=== PATIENT | female | born 1930 | race Caucasian/White ===

== ENCOUNTER 2016-10-21 09:08 | Outpatient (CLI) | payer MEDICARE ==
[~2016-10-21] VITALS: Ht 157.5 cm; Wt 60.8 kg
[~2016-10-21 09:08] MED LIST: ACET325T49 PO; ACHD5005 PO; ALEN70TA47 PO; AMLO10TA82 PO; AMLO5TAB2 PO; ASP81CT PO; ASP81TEC PO; ASPI325T32 PO; ATRV10T PO; CAPT50TA3 PO; CAPTOPRIL 12.5 MG PO; CEPH-38 PO; DCS100C PO; DONE10TA5 PO; DOXY100C2 PO; DULO30CA PO; FAMO20TA13 PO; GBPN300C PO; GUAI100S PO; HCT25T PO; HYDR-1231 PO; HYDR12.56 PO; LOPE2CAP PO; LOSA100T7 PO; LVT.025T PO; MAGN-77 PO; MELO-198 PO; MEMA5TAB2 PO; METO50TA7 PO; MUPI22OI TP; OLME40TA14 PO; PNT40TEC PO; TELM40TA PO; TR1C15 TOP; TRAM-21 PO; TRAM50TA2 PO; WRF5T PO
[2016-10-21] MEDS ORDERED: LOSA50TA36 PO (10:17)
[2016-10-21] MEDS ORDERED: TRAM50TA2 PO (10:17)
== END 2016-10-21 10:19 ==
LOC: PREOP 09:08
PROVIDERS: ATTEND Surgery
DX: Z01.818 Encounter for other preprocedural examination (principal); L98.9 Disorder of the skin and subcutaneous tissue, unspecified

== ENCOUNTER 2016-10-25 06:19 | Day surgery (SDC) | payer MEDICARE ==
[~2016-10-25] VITALS: Ht 157.5 cm; Wt 60.8 kg
[~2016-10-25 06:19] MED LIST changes: +LOSA50TA36 PO
[2016-10-25 07:25] VITALS: BP 146/89
[2016-10-25] MEDS ORDERED: LACTATED RINGERS 1,000 ML IV PRN (07:25)
[2016-10-25] MEDS ORDERED: ceFAZolin 1 GM/NS 50 ML IVPB IV ONE ×2 (07:30)
[2016-10-25] MEDS ORDERED: proPOfol 200 MG/20 ML (DIPRIVAN) VIAL IV ONE (07:33)
[2016-10-25] MEDS ORDERED: fentaNYL INJECTION 100 MCG/2 ML AMP ONE (07:33)
--- NOTE | 2016-10-25 07:46 | Progress Note-Pre Operative ---
Pre-Operative Progress Note H&P Reviewed The H&P was reviewed, patient examined and no changes noted. Date H&P Reviewed: Oct 25, 2016 Time H&P Reviewed: 07:46 Pre-Operative Diagnosis: Skin lesions right cheek and R side of neck ZAHIRA TANNER MD Oct 25, 2016 7:46 am
--- NOTE | 2016-10-25 08:22 | Progress Note-Post Operative ---
Post-Operative Progess Note Pre-Operative Diagnosis Skin lesions right cheek and R side of neck Post-Operative Diagnosis Same Post-Op Procedure Note Date of Procedure: Oct 25, 2016 Name of Procedure: Excision Times 2 Anesthesia Type Gen. Estimated blood loss (mL): Minimal Specimen(s) collected skin lesions ZAHIRA TANNER MD Oct 25, 2016 8:22 am
--- NOTE | 2016-10-25 08:24 | Discharge Inst-Simple/Standard ---
Discharge Inst-Standard Discharge Medications New, Converted or Re-Newed RX: Other Patient Instructions/Follow Up Plan of Care/Instructions/FU: May use tramadol for pain.Follow-up with my nurse in 2 weeks Activity as Tolerated: Yes Discharge Diet: No Restrictions ZAHIRA TANNER MD Oct 25, 2016 8:24 am
[2016-10-25] MEDS ORDERED: DESFLURANE (SUPRANE) 15 ML INHAL SOLN ONE (09:03)
[2016-10-25] MEDS ORDERED: LACTATED RINGERS 1,000 ML IV ONE (09:04)
[2016-10-25] MEDS ORDERED: BUP/EPI 0.25% 1:200,000 (MARCAINE) 30 ML VIAL INJ ONE (09:30)
[2016-10-25 09:55] VITALS: BP 161/82
[2016-10-25 10:25] VITALS: BP 144/78
[2016-10-25 10:55] VITALS: BP 149/85
--- NOTE | 2016-10-25 11:11 | OPERATIVE REPORT ---
PROCEDURE PHYSICIAN: ZAHIRA TANNER DATE OF PROCEDURE: 10/25/2016 PREOPERATIVE DIAGNOSIS: 1. 4 cm skin lesion right cheek. 2. 3 cm skin lesion right side of neck. POSTOPERATIVE DIAGNOSIS: 1. 4 cm skin lesion right cheek. 2. 3 cm skin lesion right side of neck. OPERATION: Excision. SURGEON: Anam ANESTHESIA: General anesthesia. BLOOD LOSS: Minimal. FLUIDS: 500 mL crystalloids. TYPE OF WOUND: Type I (clean wound). INDICATION FOR THE PROCEDURE: This lady presented with the lesions mentioned above, involving the right cheek the right side of the neck concerning for skin cancers. She was offered excision to establish a definitive diagnosis. Informed consent was obtained after reviewing the procedure with her power of trade mark attorney. DESCRIPTION OF PROCEDURE: She was placed supine on the operative table and general anesthesia induced using a laryngeal mask airway. A gram of Ancef was administered intravenously as prophylaxis against wound infection. Sequential compression devices were placed around her legs, to minimize the risk of venous thrombosis. Her neck and face were prepared and draped in the usual sterile manner. 1. EXCISION OF LESION RIGHT SIDE OF NECK: Preemptive analgesia was established using 0.25% Marcaine with epinephrine. An elliptical incision 5 cm long x 4 cm wide was made and the lesion excised down to the subcutaneous tissue. It was oriented with silk sutures and sent for permanent histologic examination. The skin edges were then undermined and approximated with interrupted 6-0 nylon sutures. A nonadherent dressing was then applied. 2. EXCISION OF LESION RIGHT CHEEK. Preemptive analgesia was established using the same material. An elliptical incision about 6 cm long x 5 cm wide was made and the lesion excised. It was also oriented with silk sutures and sent for histologic examination. Skin edges were undermined and approximated with interrupted 6-0 nylon sutures. She tolerated the procedures well, was extubated in the operating room and taken to the recovery room in a stable condition. The [place], sponges, and instruments were correct at the end of the operation. Job ID: [id number] Dictated Date: 10/25/2016 08:21:16 Forest Fire Management Officer Date: 10/25/2016 11:03:56 / shara
[2016-10-25 11:30] VITALS: BP 149/85
[2016-10-25] MEDS ORDERED: NEO/POLY/BAC (NEOSPORIN) OINT 15 GM TUBE TOP SCH (21:00)
== END 2016-10-25 11:30 | disposition home or self-care (01) ==
LOC: SDC 06:19
PROVIDERS: ATTEND Surgery
DX: C44.41 Basal cell carcinoma of skin of scalp and neck (principal); L57.0 Actinic keratosis
CPT/HCPCS: 87081; 88305; 88342

== ENCOUNTER → 2017-08-28 | Outpatient (CLI) | payer MEDICARE ==
[2017-08-28 15:55] LABS: BASOPHILS % (AUTO) 1 % (0-10); EOSINOPHILS % (AUTO) 1 % (0-10); HEMATOCRIT 34 % (35-52); HEMOGLOBIN 11.6 G/DL (11.5-16.0); LYMPHOCYTES # (AUTO) 0.6 X 10^3 (1.0-4.0); LYMPHOCYTES % (AUTO) 9 % (12-44); MEAN CORPUSCULAR HEMOGLOBIN 38 PG (25-34); MEAN CORPUSCULAR HGB CONC 34 G/DL (32-36); MEAN CORPUSCULAR VOLUME 112 FL (80-99); MEAN PLATELET VOLUME 10.2 FL (7.4-10.4); MONOCYTES # (AUTO) 0.7 X 10^3 (0.0-1.0); MONOCYTES % (AUTO) 10 % (0-12); NEUTROPHILS # (AUTO) 5.6 X 10^3 (1.8-7.8); NEUTROPHILS % (AUTO) 80 % (42-75); PLATELET COUNT 246 10^3/uL (130-400); RED BLOOD COUNT 3.04 10^6/uL (4.35-5.85); RED CELL DISTRIBUTION WIDTH 14.2 % (10.0-14.5)
--- NOTE | 2017-08-28 15:56 | Diagnostic Imaging Report ---
INDICATION: Fever and weakness. TIME OF EXAM: 03:16 p.m. Correlation is made with prior study from 09/03/2013. FINDINGS: The heart size is stable. There is a vague density noted in the right base. Otherwise, the lungs are clear. No effusion is seen. There is no pneumothorax. IMPRESSION: Vague slightly nodular parenchymal density in the right lower lobe, perhaps an infiltrate. Underlying nodule cannot be excluded. Follow-up after course of therapy is recommended to confirm clearing. Dictated by: Dictated on workstation # [id number]
== END ==
LOC: LAB 14:59
PROVIDERS: ATTEND Family Medicine
DX: R50.9 Fever, unspecified (principal); R53.83 Other fatigue; J06.9 Acute upper respiratory infection, unspecified
CPT/HCPCS: 36415; 71045; 85025; 87804

== ENCOUNTER → 2017-10-11 | Outpatient (CLI) | payer MEDICARE ==
[~2017-10-11] MED LIST changes: +AMLO10TA2 PO; +ASPI-983 PO; +DOCU100C37 PO; +DONE10TA41 PO; +GABA-488 PO; +GUAI100L13 PO; +LEVO25TA5 PO; +LOPE-134 PO; +MEMA10TA22 PO; +METO-370 PO
== END ==
LOC: CVS 07:15
PROVIDERS: ATTEND Family Medicine
DX: A04.72 Enterocolitis due to Clostridium difficile, not specified as recurrent (principal)
CPT/HCPCS: 87324; 87449

== ENCOUNTER 2017-10-13 11:00 | Inpatient (IN) | payer MEDICARE ==
[~2017-10-13] VITALS: Ht 157.5 cm; Wt 69.9 kg
[~2017-10-13 11:00] MED LIST changes: -AMLO10TA2 PO; -ASPI-983 PO; -DOCU100C37 PO; -DONE10TA41 PO; -GABA-488 PO; -GUAI100L13 PO; -LEVO25TA5 PO; -LOPE-134 PO; -MEMA10TA22 PO; -METO-370 PO
--- OUTSIDE RECORDS SUMMARY | 2017-10-13 11:06 | XMS REPORT | Continuity of Care Document ---
Author Author [facility] Organization [facility] Address Unknown Phone Unavailable Allergies Active Description Code Type Severity Reaction Onset Reported/Identified Relationship to Patient Clinical Status Yes No Known Drug Allergies [id number] Drug Allergy Unknown N/A 01/12/2013 Medications There is no data. Problems Date Dx Coded Attending Type Code Diagnosis Diagnosed By 01/15/2013 DAHLIA ROJAS DO Ot 244.9 01/15/2013 DAHLIA ROJAS DO Ot 276.51 01/15/2013 DAHLIA ROJAS DO Ot 401.9 01/15/2013 DAHLIA ROJAS DO Ot 715.90 01/15/2013 DAHLIA ROJAS DO Ot 783.0 01/27/2013 VIRGINIA KELLY, BG E Ot 244.9 01/27/2013 VIRGINIA KELLY, BG E Ot 272.0 01/27/2013 VIRGINIA KELLY, BG E Ot 275.41 01/27/2013 VIRGINIA KELLY, BG E Ot 276.1 01/27/2013 VIRGINIA KELLY, BG E Ot 300.00 01/27/2013 VIRGINIA KELLY, BG E Ot 311 01/27/2013 VIRGINIA KELLY, BG E Ot 401.9 01/27/2013 VIRGINIA KELLY, BG E Ot 530.5 01/27/2013 VIRGINIA KELLY, BG E Ot 715.90 01/27/2013 VIRGINIA KELLY, BG E Ot 724.2 01/27/2013 VIRGINIA KELLY, BG E Ot 780.52 01/27/2013 VIRGINIA KELLY, BG E Ot 781.2 01/27/2013 VIRGINIA KELLY, BG E Ot 783.21 01/27/2013 VIRGINIA KELLY, BG E Ot 799.3 01/27/2013 VIRGINIA KELLY, BG E Ot V15.88 01/27/2013 VIRGINIA KELLY, BG E Ot V57.89 04/22/2013 DHALIA ROJAS DO Ot 244.9 04/22/2013 DAHLIA ROJAS DO Ot 272.4 04/22/2013 GELLENDER DO, DAHLIA A Ot 276.1 04/22/2013 GELLENDER DO, DAHLIA A Ot 276.8 04/22/2013 GELLENDER DO, DAHLIA A Ot 344.40 04/22/2013 GELLENDER DO, DAHLIA A Ot 401.9 04/22/2013 GELLENDER DO, DAHLIA A Ot 434.91 04/22/2013 GELLENDER DO, DAHLIA A Ot 715.90 04/22/2013 GELLENDER DO, DAHLIA A Ot 784.59 04/22/2013 GELLENDER DO, DAHLIA A Ot V15.82 04/22/2013 GELLENDER DO, DAHLIA Stinson Ot V15.88 05/13/2013 VIRGINIA KELLY, BG E Ot 244.9 05/13/2013 VIRGINIA KELLY, BG E Ot 342.02 05/13/2013 VIRGINIA KELLY, BG E Ot 401.9 05/13/2013 VIRGINIA KELLY, BG E Ot 429.89 05/13/2013 VIRGINIA KELLY, BG E Ot 438.20 05/13/2013 VIRGINIA KELLY, BG E Ot 715.90 05/13/2013 VIRGINIA KELLY, BG E Ot 782.7 05/13/2013 VIRGINIA KELLY, BG E Ot E934.2 05/13/2013 VIRGINIA KELLY, BG E Ot V57.89 06/12/2013 ANGUS MANCUSO FUEL CELL BATTERY TECHNICIAN Ot 842.00 06/12/2013 ANGUS MANCUSO FUEL CELL BATTERY TECHNICIAN Ot 959.2 06/12/2013 ANGUS MANCUSO FUEL CELL BATTERY TECHNICIAN Ot E000.8 06/12/2013 ANGUS MANCUSO FUEL CELL BATTERY TECHNICIAN Ot E849.6 06/12/2013 ANGUS MANCUSO FUEL CELL BATTERY TECHNICIAN Ot E918 07/29/2013 SHAWNA KELLY, ANIYAH T Ot 599.0 07/29/2013 SHAWNA KELLY, ANIYAH T Ot 808.8 07/29/2013 SHAWNA KELLY, ANIYAH T Ot 959.01 07/29/2013 SHAWNA KELLY, ANIYAH T Ot 959.6 07/29/2013 SHAWNA KELLY, ANIYAH T Ot E000.8 07/29/2013 SHAWNA KELLY, ANIYAH T Ot E849.7 07/29/2013 SHAWNA KELLY, ANIYAH Aris Ot E885.9 07/29/2013 SHAWNA KELLY, ANIYAH Aris Ot V58.61 09/03/2013 GELLENDER DO, DAHLIA Stinson Ot 244.9 09/03/2013 GELLENDER DO, DAHLIA Stinson Ot 272.4 09/03/2013 GELLENDER DO, DAHLIA Stinson Ot 276.8 09/03/2013 GELLENDER DO, DAHLIA Stinson Ot 401.9 09/03/2013 GELLENDER DO, DAHLIA Stinson Ot 438.89 09/03/2013 GELLENDER DO, DAHLIA Stinson Ot 486 09/03/2013 GELLENDER DO, DAHLIA Stinson Ot 535.60 09/03/2013 GELLENDER DO, DAHLIA Stinson Ot 553.3 09/03/2013 GELLENDER DO, DAHLIA Stinson Ot 562.10 09/03/2013 GELLENDER DO, DAHLIA Stinson Ot 578.9 09/03/2013 GELLENDER DO, DAHLIA Stinson Ot 728.87 09/03/2013 GELLENDER DO, DAHLIA Stinson Ot 780.97 09/03/2013 GELLENDER DO, DAHLIA Stinson Ot 790.92 09/03/2013 GELLENDER DO, DAHLIA Stinson Ot V58.61 07/05/2014 Ot V76.12 07/05/2014 Ot V76.12 07/05/2014 Ot 733.00 07/05/2014 Ot V76.12 07/05/2014 Ot 733.00 07/05/2014 Ot V76.12 07/05/2014 GELLENDER DO, DAHLIA Stinson Ot 593.9 07/05/2014 GELLENDER DO, DAHLIA Stinson Ot 733.90 07/05/2014 GELLENDER DO, DAHLIA Stinson Ot 783.1 07/05/2014 GELLENDER DO, DAHLIA Stinson Ot 783.21 07/05/2014 GELLENDER DO, DAHLIA Stinson Ot 719.47 07/05/2014 GELLENDER DO, DAHLIA Stinson Ot 729.5 07/05/2014 TYREL KELLY, SHYAM Bradley Ot 272.4 07/05/2014 TYREL KELLY, SHYAM Bradley Ot 401.9 07/05/2014 TYREL KELLY, SHYAM Bradley Ot 433.10 07/05/2014 TYREL KELLY, SHYAM Bradley Ot V12.54 07/05/2014 GELLENDER DO, DAHLIA Stinson Ot 599.0 07/05/2014 Ot V76.12 07/05/2014 Ot V76.12 07/05/2014 Ot 733.00 07/05/2014 Ot V76.12 07/05/2014 Ot 733.00 07/05/2014 Ot V76.12 07/05/2014 GELLENDER DODAHLIA Ot 593.9 07/05/2014 GELLENDER DODAHLIA Ot 733.90 07/05/2014 GELLENDER DODAHLIA Ot 783.1 07/05/2014 GELLENDER DODAHLIA Ot 783.21 07/05/2014 GELLENDER DODAHLIA Ot 719.47 07/05/2014 GELLENDER DODAHLIA Ot 729.5 07/05/2014 TYREL KELLY, SHYAM Bradley Ot 272.4 07/05/2014 TYREL KELLY, SHYAM Bradley Ot 401.9 07/05/2014 SHYAM SARAH MD Ot 433.10 07/05/2014 SHYAM SARAH MD Ot V12.54 07/05/2014 GELLENDER DODAHLIA Ot 599.0 12/02/2014 Ot V76.12 12/02/2014 Ot 733.00 12/02/2014 Ot V76.12 12/02/2014 Ot 733.00 12/02/2014 Ot V76.12 12/02/2014 GELLENDER DODAHLIA Ot 593.9 12/02/2014 GELLENDER DODAHLIA Ot 733.90 12/02/2014 GELLENDER DODAHLIA Ot 783.1 12/02/2014 GELLENDER DODAHLIA Ot 783.21 12/02/2014 GELLENDER DODAHLIA Ot 719.47 12/02/2014 GELLENDER DODAHLIA Ot 729.5 12/02/2014 TYREL KELLY, SHYAM Bradley Ot 272.4 12/02/2014 SHYAM SARAH MD Ot 401.9 12/02/2014 SHYAM SARAH MD Ot 433.10 12/02/2014 SHYAM SARAH MD Ot V12.54 12/02/2014 GELLENDER DODAHLIA Ot 599.0 12/08/2014 Ot V76.12 12/08/2014 Ot 733.00 12/08/2014 Ot V76.12 12/08/2014 Ot 733.00 12/08/2014 Ot V76.12 12/08/2014 GELLENDER DO, DAHLIA A Ot 593.9 12/08/2014 GELLENDER DO, DAHLIA Stinson Ot 733.90 12/08/2014 GELLENDER DO, DAHLIA Stinson Ot 783.1 12/08/2014 GELLENDER DO, DAHLIA Stinson Ot 783.21 12/08/2014 GELLENDER DO, DAHLIA Stinson Ot 719.47 12/08/2014 GELLENDER DO, DAHLIA A Ot 729.5 12/08/2014 TYREL KELLY, SHYAM Bradley Ot 272.4 12/08/2014 TYREL KELLY, SHYAM Bradley Ot 401.9 12/08/2014 TYREL KELLY, SHYAM Bradley Ot 433.10 12/08/2014 SHYAM SARAH MD Ot V12.54 12/08/2014 GELLENDER DO, DAHLIA A Ot 599.0 12/08/2014 FLORES KELLY, ZAHIRA Bedolla Ot 173.31 12/08/2014 FLORES KELLY, ZAHIRA Bedolla Ot 709.9 12/12/2014 FLORES KELLY, ZAHIRA Bedolla Ot 709.9 12/12/2014 FLORES KELLY, ZAHIRA Bedolla Ot V72.81 12/12/2014 FLORES KELLY, ZAHIRA Bedolla Ot V74.8 12/12/2014 Ot V76.12 12/12/2014 Ot 733.00 12/12/2014 Ot V76.12 12/12/2014 Ot 733.00 12/12/2014 Ot V76.12 12/12/2014 GELLENDER DO, DAHLIA A Ot 593.9 12/12/2014 GELLENDER DO, DAHLIA A Ot 733.90 12/12/2014 GELLENDER DO, DAHLIA A Ot 783.1 12/12/2014 GELLENDER DO, DAHLIA A Ot 783.21 12/12/2014 GELLENDER DO, DAHLIA A Ot 719.47 12/12/2014 GELLENDER DO, DAHLIA A Ot 729.5 12/12/2014 TYREL KELLY, SHAYM Bradley Ot 272.4 12/12/2014 TYREL KELLY, SHYAM Bradley Ot 401.9 12/12/2014 SHYAM SARAH MD Ot 433.10 12/12/2014 TYREL KELLY, SHYAM Bradley Ot V12.54 12/12/2014 GELLENDER DO, DAHLIA A Ot 599.0 12/12/2014 FLORES KELLY, ZAHIRA M Ot 709.9 12/12/2014 FLORES KELLY, ZAHIRA M Ot V72.81 12/12/2014 FLORES KELLY, ZAHIRA M Ot V74.8 12/20/2014 Ot V76.12 12/20/2014 Ot 733.00 12/20/2014 Ot V76.12 12/20/2014 Ot 733.00 12/20/2014 Ot V76.12 12/20/2014 GELLENDER DO, DAHLIA A Ot 593.9 12/20/2014 GELLENDER DO, DAHLIA A Ot 733.90 12/20/2014 GELLENDER DO, DAHLIA A Ot 783.1 12/20/2014 GELLENDER DO, DAHLIA A Ot 783.21 12/20/2014 GELLENDER DO, DAHLIA A Ot 719.47 12/20/2014 GELLENDER DO, DAHLIA A Ot 729.5 12/20/2014 TYREL KELLY, SHYAM Bradley Ot 272.4 12/20/2014 TYREL KELLY, SHYAM Bradley Ot 401.9 12/20/2014 TYREL KELLY, SHYAM Bradley Ot 433.10 12/20/2014 TYREL KELLY, SHYAM Bradley Ot V12.54 12/20/2014 GELLENDER DO, DAHLIA A Ot 599.0 12/20/2014 FLORES KELLY, ZAHIRA Bedolla Ot 709.9 12/20/2014 FLORES KELLY, ZAHIRA M Ot V72.81 12/20/2014 FLORES KELLY, ZAHIRA Bedolla Ot V74.8 01/07/2015 FLORES KELLY, ZAHIRA Bedolla Ot 709.9 01/07/2015 FLORES KELLY, ZAHIRA M Ot V72.81 01/07/2015 FLORES KELLY, ZAHIRA M Ot V74.8 01/17/2015 FLORES KELLY, ZAHIRA Bedolla Ot 173.31 01/17/2015 FLORES KELLY, ZAHIRA M Ot V72.84 01/17/2015 FLORES KELLY, ZAHIRA M Ot 173.31 01/17/2015 FLORES KELLY, ZAHIRA Bedolla Ot V72.84 01/18/2015 FLORES KELLY, ZAHIRA Bedolla Ot 173.31 01/18/2015 FLORES KELLY, ZAHIRA M Ot V72.84 01/20/2015 FLORES KELLY, ZAHIRA M Ot 173.31 01/27/2015 FLORES KELLY, ZAHIRA M Ot 709.9 01/27/2015 FLORES KELLY, ZAHIRA M Ot V72.81 01/27/2015 FLORES KELLY, ZAHIRA M Ot V74.8 10/22/2016 FLORES KELLY, ZAHIRA M Ot L98.9 DISORDER OF THE SKIN AND SUBCUTANEOUS TI 10/22/2016 FLORES KELLY, ZAHIRA M Ot Z01.818 ENCOUNTER FOR OTHER PREPROCEDURAL EXAMIN 10/25/2016 FLORES KELLY, ZAHIRA M Ot 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 10/25/2016 FLORES KELLY, ZAHIRA M Ot L57.0 ACTINIC KERATOSIS 10/29/2016 FLORES KELLY, ZAHIRA M Ot 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 10/29/2016 FLORES KELLY, ZAHIRA M Ot L57.0 ACTINIC KERATOSIS 11/08/2016 FLORES KELLY, ZAHIRA M Ot 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 11/08/2016 FLORES KELLY, ZAHIRA M Ot L57.0 ACTINIC KERATOSIS 08/29/2017 GELLENDER DO, DAHLIA A Ot J06.9 ACUTE UPPER RESPIRATORY INFECTION, UNSPE 08/29/2017 GELLENDER DO, DAHLIA A Ot R50.9 FEVER, UNSPECIFIED 08/29/2017 GELLENDER DO, DAHLIA A Ot R53.83 OTHER FATIGUE 09/16/2017 GELLENDER DO, DAHLIA A Ot J06.9 ACUTE UPPER RESPIRATORY INFECTION, UNSPE 09/16/2017 GELLENDER DO, DAHLIA A Ot R50.9 FEVER, UNSPECIFIED 09/16/2017 GELLENDER DO, DAHLIA A Ot R53.83 OTHER FATIGUE 09/18/2017 GELLENDER DO, DAHLIA A Ot J06.9 ACUTE UPPER RESPIRATORY INFECTION, UNSPE 09/18/2017 GELLENDER DO, DAHLIA A Ot R50.9 FEVER, UNSPECIFIED 09/18/2017 GELLENDER DO, DAHLIA A Ot R53.83 OTHER FATIGUE Procedures There is no data. Results Test Result Range Methicillin resistant Staphylococcus aureus (MRSA) screening culture - 07:25 Methicillin resistant Staphylococcus aureus (MRSA) screening culture NEG [facility] Complete blood count (CBC) with automated white blood cell (WBC) differential - 08/28/17 15:48 Blood leukocytes automated count (number/volume) 7.0 10*3/uL 4.3-11.0 Blood erythrocytes automated count (number/volume) 3.04 10*6/uL 4.35-5.85 Venous blood hemoglobin measurement (mass/volume) 11.6 g/dL 11.5-16.0 Blood hematocrit (volume fraction) 34 % 35-52 Automated erythrocyte mean corpuscular volume 112 [foz_us] 80-99 Automated erythrocyte mean corpuscular hemoglobin (mass per erythrocyte) 38 pg 25-34 Automated erythrocyte mean corpuscular hemoglobin concentration measurement ( mass/volume) 34 g/dL 32-36 Automated erythrocyte distribution width ratio 14.2 % 10.0-14.5 Automated blood platelet count (count/volume) 246 10*3/uL 130-400 Automated blood platelet mean volume measurement 10.2 [foz_us] 7.4-10.4 Automated blood neutrophils/100 leukocytes 80 % 42-75 Automated blood lymphocytes/100 leukocytes 9 % 12-44 Blood monocytes/100 leukocytes 10 % 0-12 Automated blood eosinophils/100 leukocytes 1 % 0-10 Automated blood basophils/100 leukocytes 1 % 0-10 Blood neutrophils automated count (number/volume) 5.6 10*3 1.8-7.8 Blood lymphocytes automated count (number/volume) 0.6 10*3 1.0-4.0 Blood monocytes automated count (number/volume) 0.7 10*3 0.0-1.0 Automated eosinophil count 0.0 10*3/uL 0.0-0.3 Automated blood basophil count (count/volume) 0.0 10*3/uL 0.0-0.1 Influenza virus A and B antigen detection - 08/28/17 15:48 CALL POSITIVES (F1 HELP) CALLED TO DR. ROJAS'S OFFICE AT [address] [facility] FLU RESULT POSITIVE FOR INFLUENZA A ANTIGEN, NEG FOR B ANTIGEN, BY [facility] C DIFFICILE AG + TOXIN A/B. - 10/11/17 07:15 CALL POSITIVES (F1 HELP) FAXED TO [facility] [phone] 10/11/17 11:50 NR SPECIAL CONTACT SPECIAL CONTACT PRECAUTIONS NEEDED NRG RESULTS POSITIVE FOR ANTIGEN AND TOXIN A/B NRG Encounters ACCT No. Visit Date/Time Discharge Status Pt. Type Provider Facility Loc./Unit Complaint [id number] 08/28/2017 14:59:00 08/28/2017 23:59:59 CLS Outpatient DAHLIA ROJAS DO [facility] LAB ELEV TEMP,WEAKNESS, URI, [id number] 10/25/2016 06:19:00 10/25/2016 11:30:00 DIS Outpatient ZAHIRA TANNER MD [facility] SKIN LESIONS [id number] 10/21/2016 09:08:00 10/21/2016 10:19:00 [facility] [id number] 01/20/2015 08:03:00 01/20/2015 14:30:00 DIS Outpatient ZAHIRA TANNER MD [facility] [id number] 01/17/2015 10:30:00 01/17/2015 23:59:59 CLS Outpatient ZAHIRA TANNER MD [facility] PREOP [id number] 12/08/2014 11:15:00 12/08/2014 17:00:00 DIS Outpatient ZAHIRA TANNER MD [facility] [id number] 12/07/2014 14:06:00 12/07/2014 23:59:59 CLS Outpatient ZAHIRA TANNER MD [facility] PREOP [id number] 01/31/2014 19:16:00 01/31/2014 23:59:59 CLS Outpatient DAHLIA ROJAS DO [facility] CVS [id number] 08/26/2013 13:25:00 09/03/2013 15:50:00 DIS Inpatient DAHLIA ROJAS DO [facility] SURGICAL [id number] 07/28/2013 21:19:00 07/29/2013 00:10:00 DIS Emergency SHAWNA KELLY, ANIYAH Hurst [facility] ER [id number] 06/30/2013 08:18:00 06/30/2013 23:59:59 CLS Outpatient SHYAM SARAH MD [facility] RAD [id number] 06/12/2013 16:57:00 06/12/2013 18:28:00 DIS Emergency JAMEEANGUS APRN [facility] [id number] 05/31/2013 10:16:00 05/31/2013 23:59:59 CLS Outpatient DAHLIA ROJAS DO [facility] RAD [id number] 04/22/2013 10:16:00 05/13/2013 16:18:00 DIS Inpatient BG COLEMAN MD [facility] [id number] 04/18/2013 14:59:00 04/22/2013 10:15:00 DIS Inpatient DAHLIA ROJAS DO Via [address] [id number] 01/15/2013 12:15:00 01/27/2013 14:25:00 DIS Inpatient BG COLEMAN MD [facility] [id number] 01/12/2013 15:51:00 01/15/2013 12:15:00 DIS Inpatient DAHLIA ROJAS DO Via [address] [id number] 12/23/2012 09:31:00 12/23/2012 23:59:59 CLS Outpatient DAHLIA ROJAS DO [facility] [id number] 10/11/2017 07:15:00 ACT Outpatient DAHLIA ROJAS DO [facility] [id number] 06/24/2012 09:52:00 Document Registration [id number] 12/13/2011 10:52:00 Document Registration [id number] 06/06/2011 10:44:00 Document Registration [id number] 12/04/2010 12:54:00 Document Registration [id number] 06/01/2010 08:18:00 Document Registration [id number] 05/25/2009 10:55:00 Document Registration
--- NOTE | 2017-10-13 11:12 | ED General ---
General Stated Complaint: FEVER Source of Information: Patient Exam Limitations: No Limitations History of Present Illness Date Seen by Provider: Oct 13, 2017 Time Seen by Provider: 11:09 Initial Comments To ER per EMS from via [facility] with reports of fever and general weakness. She was recently tested for Clostridium difficile and tested positive. She also tested positive a few weeks prior and was treated.She is a DO NOT RESUSCITATE status. Nursing staff reported a fever up to 104.3 this morning, upon EMS arrival, 99.8 Timing/Duration: 1-2 Days Severity: Moderate Allergies and Home Medications Allergies Coded Allergies: No Known Drug Allergies (Verified , 01/12/13) Home Medications Acetaminophen 325 Mg Tablet, 650 MG PO Q4H PRN for pain or temperature, ( Reported) Amlodipine Besylate 10 Mg Tablet, 10 MG PO DAILY, (Reported) Aspirin 81 Mg Tabec, 81 MG PO DAILY, (Reported) Atorvastatin Calcium 10 Mg Tablet, 10 MG PO HS, (Reported) Docusate Sodium 100 Mg Cap, 100 MG PO BID, (Reported) Donepezil HCl 10 Mg Tablet, 10 MG PO DAILY, (Reported) Gabapentin 300 Mg Cap, 300 MG PO HS, (Reported) Guaifenesin 100 Mg/5 Ml Btl, 10 ML PO Q4H PRN for COUGH, (Reported) Levothyroxine Sodium 25 Mcg Tablet, 25 MCG PO DAILY, (Reported) Losartan Potassium 50 Mg Tablet, 50 MG PO DAILY, (Reported) Memantine Hcl 5 Mg Tablet, 1 EACH PO BID, (Reported) Metoprolol Succinate 50 Mg Tab.sr.24h, 50 MG PO DAILY, (Reported) Tramadol HCl 50 Mg Tablet, 50 MG PO BID PRN for PAIN, (Reported) Patient Home Medication List Home Medication List Reviewed: Yes Constitutional: see HPI EENTM: see HPI Respiratory: no symptoms reported Cardiovascular: no symptoms reported Genitourinary: no symptoms reported Musculoskeletal: no symptoms reported Skin: no symptoms reported Psychiatric/Neurological: No Symptoms Reported Hematologic/Lymphatic: No Symptoms Reported Immunological/Allergic: no symptoms reported Past Cfrebce-Stdzdb-Ajzipw Hx Patient Social History Type Used: Cigarettes Former Smoker, Quit: Oct 25, 1966 Recent Hopitalizations: No Immunizations Up To Date PED Vaccines UTD: No Date of Pneumonia Vaccine: May 11, 2012 Date of Influenza Vaccine: May 17, 2016 Seasonal Allergies Seasonal Allergies: No Surgeries Surgeries: Appendectomy Cardiovascular Cardiac Disorders: Hypertension Neurological Neurological Disorders: Dementia, Stroke Reproductive System Hx Reproductive Disorders: No Sexually Transmitted Disease: No HIV/AIDS: No Female Reproductive Disorders: Denies Gastrointestinal Gastrointestinal Disorders: Gastroesophageal Reflux, Chronic Constipation Musculoskeletal Musculoskeletal Disorders: Degenerate Disk Disease, Osteoporosis, Arthritis Endocrine Endocrine Disorders: Hypothyroidsim HEENT Loss of Vision: Denies Hearing Impairment: Denies Cancer Cancer: Skin Blood Transfusions Adverse Reaction to a Blood Tr: No Family Medical History Significant Family History: Heart Disease, Cancer Physical Exam Vital Signs Vital Signs - First Documented 10/13/17 11:29 Temp 98.4 Pulse 79 Resp 20 B/P (MAP) 117/76 (90) Pulse Ox 92 O2 Delivery Room Air Capillary Refill : General Appearance: No Apparent Distress, WD/WN, Other (elderly and frail) Eyes: Bilateral Eye Normal Inspection, Bilateral Eye PERRL, Bilateral Eye EOMI HEENT: PERRL/EOMI, TMs Normal Neck: Full Range of Motion, Normal Inspection Respiratory: Normal Breath Sounds, No Accessory Muscle Use, No Respiratory Distress Cardiovascular: Regular Rate, Rhythm, Normal Peripheral Pulses Gastrointestinal: Normal Bowel Sounds, Non Tender, Soft, Other (abdomen is entirely nontender to palpation) Extremity: Normal Capillary Refill, Normal Inspection Neurologic/Psychiatric: Alert, Oriented x3, No Motor/Sensory Deficits Skin: Normal Color, Warm/Dry Focused Exam Evaluation Lactate Level Laboratory Tests 10/13/17 11:16: Lactic Acid Level 1.95 Lactic Acid Level Laboratory Tests Test 10/13/17 11:16 Lactic Acid Level 1.95 MMOL/L (0.50-2.00) Progress/Results/Core Measures Suspected Sepsis SIRS Temperature: Pulse: Respiratory Rate: Laboratory Tests 10/13/17 11:24: White Blood Count 17.5H Blood Pressure / Mean: Laboratory Tests 10/13/17 11:16: Lactic Acid Level 1.95 Laboratory Tests 10/13/17 11:24: Creatinine 1.01, Platelet Count 220, Total Bilirubin 0.6 Results/Orders Lab Results Laboratory Tests Test 10/13/17 11:16 10/13/17 11:24 Range/Units Lactic Acid Level 1.95 0.50-2.00 MMOL/L White Blood Count 17.5 H 4.3-11.0 10^3/uL Red Blood Count 3.58 L 4.35-5.85 10^6/uL Hemoglobin 13.9 11.5-16.0 G/DL Hematocrit 38 35-52 % Mean Corpuscular Volume 107 H 80-99 FL Mean Corpuscular Hemoglobin 39 H 25-34 PG Mean Corpuscular Hemoglobin Concent 36 32-36 G/DL Red Cell Distribution Width 12.8 10.0-14.5 % Platelet Count 220 130-400 10^3/uL Mean Platelet Volume 10.9 H 7.4-10.4 FL Neutrophils (%) (Auto) 88 H 42-75 % Lymphocytes (%) (Auto) 5 L 12-44 % Monocytes (%) (Auto) 6 0-12 % Eosinophils (%) (Auto) 1 0-10 % Basophils (%) (Auto) 0 0-10 % Neutrophils # (Auto) 15.4 H 1.8-7.8 X 10^3 Lymphocytes # (Auto) 0.9 L 1.0-4.0 X 10^3 Monocytes # (Auto) 1.0 0.0-1.0 X 10^3 Eosinophils # (Auto) 0.1 0.0-0.3 10^3/uL Basophils # (Auto) 0.1 0.0-0.1 10^3/uL Neutrophils % (Manual) 89 % Lymphocytes % (Manual) 8 % Monocytes % (Manual) 2 % Eosinophils % (Manual) 0 % Basophils % (Manual) 0 % Band Neutrophils 1 % Macrocytosis SLIGHT Urine Color YELLOW Urine Clarity CLEAR Urine pH 6 5-9 Urine Specific [place] 1.020 1.016-1.022 Urine Protein 2+ H NEGATIVE Urine Glucose (UA) NEGATIVE NEGATIVE Urine Ketones NEGATIVE NEGATIVE Urine Nitrite NEGATIVE NEGATIVE Urine Bilirubin NEGATIVE NEGATIVE Urine Urobilinogen NORMAL NORMAL MG/DL Urine Leukocyte Esterase 3+ H NEGATIVE Urine RBC (Auto) 2+ H NEGATIVE Urine RBC RARE /HPF Urine WBC 50-100 H /HPF Urine Squamous Epithelial Cells 2-5 /HPF Urine Crystals NONE /LPF Urine Bacteria MODERATE H /HPF Urine Casts NONE /LPF Urine Mucus NEGATIVE /LPF Urine Culture Indicated YES Sodium Level 138 135-145 MMOL/L Potassium Level 3.9 3.6-5.0 MMOL/L Chloride Level 107 98-107 MMOL/L Carbon Dioxide Level 24 21-32 MMOL/L Anion Gap 7 5-14 MMOL/L Blood Urea Nitrogen 17 7-18 MG/DL Creatinine 1.01 0.60-1.30 MG/DL Estimat Glomerular Filtration Rate 52 BUN/Creatinine Ratio 17 Glucose Level 95 70-105 MG/DL Calcium Level 8.7 8.5-10.1 MG/DL Total Bilirubin 0.6 0.1-1.0 MG/DL Aspartate Amino Transf (AST/SGOT) 14 5-34 U/L Alanine Aminotransferase (ALT/SGPT) 7 0-55 U/L Alkaline Phosphatase 100 40-136 U/L Total Protein 5.6 L 6.4-8.2 GM/DL Albumin 3.3 3.2-4.5 GM/DL My Orders Orders - ANGUS MANCUSO APRN Cbc With Automated Diff (10/13/17 11:05) Comprehensive Metabolic Panel (10/13/17 11:05) Ua Culture If Indicated (10/13/17 11:05) Saline Lock/Iv-Start (10/13/17 11:05) Lactated Ringers (Lr 1000 Ml Iv Solution (10/13/17 11:15) Manual Differential (10/13/17 11:24) Chest 1 View, Ap/Pa Only (10/13/17 11:39) Blood Culture (10/13/17 11:39) Lactic Acid Analyzer (10/13/17 11:39) Urine Culture (10/13/17 11:24) Piperacillin Sodium/Tazobactam (Zosyn Vi (10/13/17 13:00) Vital Signs/I&O Vital Sign - Last 12Hours 10/13/17 10/13/17 11:29 12:47 Temp 98.4 98.0 Pulse 79 77 Resp 20 16 B/P (MAP) 117/76 (90) 126/79 Pulse Ox 92 93 O2 Delivery Room Air Room Air Capillary Refill : Diagnostic Imaging Diagonstic Imaging: Xray Plain Films/CT/US/NM/MRI: chest Comments NAME: MIRNAFrankyTAM REC#: [id number] PT STATUS: REG ER : 1930 PHYSICIAN: ANGUS MANCUSO APRN ADMIT DATE: 10/13/17/ER Draft Date of Exam:10/13/17 CHEST 1 VIEW, AP/PA ONLY INDICATION: Fever and weakness. TIME OF EXAMINATION: 12:16 p.m. COMPARISON: Correlation is made with prior study from 08/28/2017. FINDINGS: The heart size is stable. There is some density in the left base obscuring the left hemidiaphragm, suspicious for infiltrate. The right lung is clear. No effusion or pneumothorax is seen. IMPRESSION: Findings suggestive of developing left basilar pneumonia. Dictated on workstation # [id number] Dict: 10/13/17 1226 Trans: 10/13/17 1234 [facility] [id number] Interpreted by: ATIF DOVER MD Electronically signed by: Departure Communication (Admissions) Time/Spoke to Admitting Phy: 12:49 Communication I discussed the case with Dr. Dr. Rojas. We will use Zosyn to cover for the pneumonia and urinary tract infection unfortunately this will likely cause a recurrence of her C. difficile so we'll treat empirically with Flagyl 500 3 times a day orally and probiotics Impression Impression: Primary Impression: Urinary tract infectious disease Additional Impressions: Left lower lobe pneumonia recent C. difficile Disposition: ADMITTED INPATIENT Condition: Stable Admissions Decision to Admit Reason: Admit from ER (General) Decision to Admit/Date: Oct 13, 2017 Time/Decision to Admit Time: 12:50 Departure-Patient Inst. Referrals: DAHLIA ROJAS DO (PCP/Family) Primary Care Physician ANGUS MANCUSO APRN Oct 13, 2017 11:12
[2017-10-13] MEDS ORDERED: LACTATED RINGERS 1,000 ML IV SCH (11:15)
[2017-10-13 11:35] LABS: BASOPHILS # (AUTO) 0.1 10^3/uL (0.0-0.1); BASOPHILS % (AUTO) 0 % (0-10); EOSINOPHILS # (AUTO) 0.1 10^3/uL (0.0-0.3); EOSINOPHILS % (AUTO) 1 % (0-10); HEMATOCRIT 38 % (35-52); HEMOGLOBIN 13.9 G/DL (11.5-16.0); LYMPHOCYTES # (AUTO) 0.9 X 10^3 (1.0-4.0); LYMPHOCYTES % (AUTO) 5 % (12-44); MEAN CORPUSCULAR HEMOGLOBIN 39 PG (25-34); MEAN CORPUSCULAR HGB CONC 36 G/DL (32-36); MEAN CORPUSCULAR VOLUME 107 FL (80-99); MEAN PLATELET VOLUME 10.9 FL (7.4-10.4); MONOCYTES % (AUTO) 6 % (0-12); NEUTROPHILS # (AUTO) 15.4 X 10^3 (1.8-7.8); NEUTROPHILS % (AUTO) 88 % (42-75); PLATELET COUNT 220 10^3/uL (130-400); RED BLOOD COUNT 3.58 10^6/uL (4.35-5.85); RED CELL DISTRIBUTION WIDTH 12.8 % (10.0-14.5); WHITE BLOOD COUNT 17.5 10^3/uL (4.3-11.0)
[2017-10-13 11:47] LABS: BILIRUBIN,URINE NEGATIVE (NEGATIVE); CLARITY,URINE CLEAR; COLOR,URINE YELLOW; GLUCOSE, URINE (UA) NEGATIVE (NEGATIVE); KETONES,URINE NEGATIVE (NEGATIVE); LEUKOCYTE ESTERASE ,URINE 3+ (NEGATIVE); NITRITE,URINE NEGATIVE (NEGATIVE); PH,URINE 6 (5-9); PROTEIN,URINE 2+ (NEGATIVE); UROBILINOGEN,URINE NORMAL (NORMAL)
[2017-10-13 11:59] LABS: BAND NEUTROPHILS 1 %; BASOPHILS % (MANUAL) 0 %; EOSINOPHILS % (MANUAL) 0 %; LYMPHOCYTES % (MANUAL) 8 %; MONOCYTES % (MANUAL) 2 %; NEUTROPHILS % (MANUAL) 89 %
[2017-10-13 12:03] LABS: ALBUMIN 3.3 GM/DL (3.2-4.5); BILIRUBIN,TOTAL 0.6 MG/DL (0.1-1.0); CALCIUM 8.7 MG/DL (8.5-10.1); CREATININE SERUM 1.01 MG/DL (0.60-1.30); POTASSIUM 3.9 MMOL/L (3.6-5.0); TOTAL PROTEIN 5.6 GM/DL (6.4-8.2)
[2017-10-13 12:11] LABS: RBC,URINE RARE /HPF
[2017-10-13 12:12] LABS: BACTERIA,URINE MODERATE /HPF; WBC,URINE 50-100 /HPF
--- NOTE | 2017-10-13 12:34 | Diagnostic Imaging Report ---
INDICATION: Fever and weakness. TIME OF EXAMINATION: 12:16 p.m. COMPARISON: Correlation is made with prior study from 08/28/2017. FINDINGS: The heart size is stable. There is some density in the left base obscuring the left hemidiaphragm, suspicious for infiltrate. The right lung is clear. No effusion or pneumothorax is seen. IMPRESSION: Findings suggestive of developing left basilar pneumonia. Dictated by: Dictated on workstation # [id number]
[2017-10-13] MEDS ORDERED: PIPERACILLIN SODIUM/TAZOBACTAM 4.5 GM in NS (IVPB) 100 ML IV ONE (13:00)
[2017-10-13 13:30] VITALS: BP 115/73
[2017-10-13] MEDS ORDERED: PIPERACILLIN SODIUM/TAZOBACTAM 4.5 GM in NS (IVPB) 100 ML IV NR (14:00)
[2017-10-13] MEDS: LACTATED RINGERS 1,000 ML IV SCH (14:53)
[2017-10-13] MEDS: metroNIDAZOLE 500 MG (FLAGYL) TAB PO SCH ×2 (14:53→20:07)
[2017-10-13] MEDS ORDERED: METO-370 PO (15:26)
[2017-10-13] MEDS ORDERED: GUAI100L13 PO (15:26)
[2017-10-13] MEDS ORDERED: DOCU100C37 PO (15:26)
[2017-10-13] MEDS ORDERED: ACET325T49 PO (15:26)
[2017-10-13] MEDS ORDERED: ASPI-983 PO (15:26)
[2017-10-13] MEDS ORDERED: AMLO10TA2 PO (15:26)
[2017-10-13] MEDS ORDERED: GABA-488 PO (15:26)
[2017-10-13] MEDS ORDERED: DONE10TA41 PO (15:26)
[2017-10-13] MEDS ORDERED: LOPE-134 PO (15:26)
[2017-10-13] MEDS ORDERED: MEMA10TA22 PO (15:26)
[2017-10-13] MEDS ORDERED: LEVO25TA5 PO (15:32)
[2017-10-13 15:48] VITALS: BP 127/56
[2017-10-13] MEDS ORDERED: CATHETER FLUSH 10 ML SYR IV PRN (16:45)
--- NOTE | 2017-10-13 19:03 | History & Physicial ---
History of Present Illness History of Present Illness Reason for visit/HPI Patient is a resident of a [facility]. According to the nurse patient's running an elevated temperature and lethargic and acting differently. Patient sent out to the emergency room showing a UTI and pneumonia. Patient admitted. Patient has a history of dementia. Patient also has a CVA history Date of Admission Oct 13, 2017 at 12:46 Time Seen by Provider: 19:00 I consulted on this patient on 10/13/17 18:58 Attending Physician Benjamin Rojas DO Admitting Physician Benjamin Rojas DO Consult Allergies and Home Medications Allergies Coded Allergies: No Known Drug Allergies (Verified , 10/13/17) Home Medications Acetaminophen 325 Mg Tablet, 650 MG PO Q4H PRN for MILD PAIN/TEMP, (Reported) Amlodipine Besylate 10 Mg Tablet, 10 MG PO DAILY, (Reported) Aspirin 81 Mg Tablet.dr, 81 MG PO DAILY, (Reported) Docusate Sodium 100 Mg Capsule, 100 MG PO BID, (Reported) Donepezil HCl 10 Mg Tablet, 10 MG PO HS, (Reported) Gabapentin 300 Mg Capsule, 300 MG PO HS, (Reported) Guaifenesin 100 Mg/5 Ml Liquid, 10 ML PO Q4H PRN for COUGH, (Reported) Levothyroxine Sodium 25 Mcg Tablet, 25 MCG PO DAILY, (Reported) Loperamide HCl 2 Mg Tablet, 2 MG PO QID PRN for DIARRHEA, (Reported) Losartan Potassium 50 Mg Tablet, 50 MG PO DAILY, (Reported) Memantine HCl 10 Mg Tablet, 10 MG PO BID, (Reported) Metoprolol Succinate 50 Mg Tab.er.24h, 50 MG PO DAILY, (Reported) Tramadol HCl 50 Mg Tablet, 50 MG PO BID PRN for PAIN-MODERATE, (Reported) Patient Home Medication List Home Medication List Reviewed: Yes Past Woukror-Ujtpqe-Htckla Hx Patient Social History Marrital Status: Employed/Student: unemployed Alcohol Use: Denies Use Number of Drinks Today: AA Recreational Drug Use: No Smoking Status: Former Smoker Former Smoker, Quit: Oct 25, 1966 Type Used: Cigarettes Physical Abuse Screen: No Sexual Abuse: No Recent Foreign Travel: No Contact w/other who traveled: No Recent Hopitalizations: No Recent Infectious Disease Expo: No Immunizations Up To Date Pediatric: No Date of Pneumonia Vaccine: May 11, 2012 Date of Influenza Vaccine: Jun 04, 2017 Seasonal Allergies Seasonal Allergies: No Surgeries Yes (removal of skin cancer lesions several times) Appendectomy Respiratory No Cardiovascular Yes High Cholesterol, Hypertension Neurological Yes (l sided weakness/paralysis) Dementia, Stroke Reproductive System Hx Reproductive Disorders: No Sexually Transmitted Disease: No HIV/AIDS: No Female Reproductive Disorders: Denies Gastrointestinal Yes Gastroesophageal Reflux, Gastrointestinal Bleed, Chronic Constipation Musculoskeletal Yes (left sided weakness, osteoarthritis) Degenerate Disk Disease, Osteoporosis, Arthritis Endocrine History of Endocrine Disorders: Yes Endocrine Disorders: Hypothyroidsim HEENT Loss of Vision: Denies Hearing Impairment: Denies Cancer Yes Skin Psychosocial History of Psychiatric Problem: No Integumentary History of Skin or Integumenta: No Blood Transfusions History of Blood Disorders: No Adverse Reaction to a Blood Tr: No Family Medical History Significant Family History: Heart Disease, Cancer Family Hx: Patient reports no known family medical history. Constitutional: malaise, weakness EENTM: no symptoms reported Respiratory: no symptoms reported Cardiovascular: no symptoms reported Gastrointestinal: no symptoms reported Genitourinary: no symptoms reported Physical Exam Vital Signs Vital Signs - First Documented 10/13/17 10/13/17 11:29 16:29 Temp 98.4 Pulse 79 Resp 20 B/P (MAP) 117/76 (90) Pulse Ox 92 O2 Delivery Room Air FiO2 21 Capillary Refill : Less Than 3 SecondsLess Than 3 Seconds General Appearance: No Apparent Distress, Thin Eyes: Bilateral Eye Normal Inspection HEENT: Normal ENT Inspection Neck: Full Range of Motion, Normal Inspection, Non Tender Respiratory: Chest Non Tender, Lungs Clear, Normal Breath Sounds, No Accessory Muscle Use, No Respiratory Distress Cardiovascular: Regular Rate, Rhythm, No Murmur Gastrointestinal: Non Tender, Soft Assessment/Plan Assessment and Plan Pneumonia. UTI. Febrile. Dementia. CVA. Hypertension history. Hyperlipidemia. Patient unable to give history since has no to everything. 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 UTI. Weakness. Not eating Clinical Quality Measures DVT/VTE Risk/Contraindication: Risk Factor Score Per Nursin RFS Level Per Nursing on Admit: 4+=Very High BENJAMIN ROJAS DO Oct 13, 2017 19:03
[2017-10-13] MEDS ORDERED: ACETAMINOPHEN 325 MG TABLET/CAPLET (TYLENOL) PO PRN (19:15)
[2017-10-13] MEDS ORDERED: guaiFENesin SYRUP 100 MG/5 ML 10 ML (ROBITUSSIN SF) PO PRN (19:15)
[2017-10-13] MEDS ORDERED: LOPERAMIDE 2 MG (IMODIUM) CAP PO PRN (19:30)
[2017-10-13] MEDS: RT-ALBUTEROL/IPRATROPIUM 3 ML (DUONEB) VIAL INH SCH (19:55)
[2017-10-13] MEDS: ENOXAPARIN 40 MG/0.4 ML (LOVENOX) SYR SC SCH (20:06)
[2017-10-13] MEDS: PIPERACILLIN SODIUM/TAZOBACTAM 4.5 GM in NS (IVPB) 100 ML IV SCH (20:06)
[2017-10-13] MEDS: DOCUSATE SODIUM 100 MG (COLACE) CAP PO SCH (20:07)
[2017-10-13] MEDS: MEMANTINE 10 MG (NAMENDA) TABLET PO SCH (20:07)
[2017-10-13] MEDS: DONEPEZIL 10 MG (ARICEPT) TAB PO SCH (20:07)
[2017-10-13] MEDS: GABAPENTIN 300 MG (NEURONTIN) CAP PO SCH (20:07)
[2017-10-13] MEDS: LACTOBACILLUS Acidoph/Bulgar (LACTINEX/FLORANEX) TAB PO SCH (20:07)
[2017-10-13 20:44] VITALS: BP 123/59
[2017-10-14 00:22] VITALS: BP 128/62
[2017-10-14] MEDS: LACTATED RINGERS 1,000 ML IV SCH ×2 (00:38→05:35)
[2017-10-14] MEDS: PIPERACILLIN SODIUM/TAZOBACTAM 4.5 GM in NS (IVPB) 100 ML IV SCH ×3 (03:06→21:31)
[2017-10-14 04:00] VITALS: BP 124/64
[2017-10-14] MEDS: LEVOTHYROXINE 25 MCG (LEVOTHROID) TAB PO SCH (05:35)
[2017-10-14 06:46] LABS: BASOPHILS % (AUTO) 0 % (0-10); EOSINOPHILS # (AUTO) 0.2 10^3/uL (0.0-0.3); EOSINOPHILS % (AUTO) 1 % (0-10); HEMATOCRIT 36 % (35-52); HEMOGLOBIN 12.3 G/DL (11.5-16.0); LYMPHOCYTES % (AUTO) 9 % (12-44); MEAN CORPUSCULAR HEMOGLOBIN 37 PG (25-34); MEAN CORPUSCULAR HGB CONC 34 G/DL (32-36); MEAN CORPUSCULAR VOLUME 109 FL (80-99); MEAN PLATELET VOLUME 10.9 FL (7.4-10.4); MONOCYTES # (AUTO) 0.9 X 10^3 (0.0-1.0); MONOCYTES % (AUTO) 9 % (0-12); NEUTROPHILS # (AUTO) 8.5 X 10^3 (1.8-7.8); NEUTROPHILS % (AUTO) 80 % (42-75); PLATELET COUNT 173 10^3/uL (130-400); RED BLOOD COUNT 3.29 10^6/uL (4.35-5.85); RED CELL DISTRIBUTION WIDTH 12.5 % (10.0-14.5); WHITE BLOOD COUNT 10.7 10^3/uL (4.3-11.0)
[2017-10-14 07:06] LABS: BUN/CREATININE RATIO 17; CALCIUM 8.1 MG/DL (8.5-10.1); CARBON DIOXIDE 20 MMOL/L (21-32); CHLORIDE 109 MMOL/L (98-107); CREATININE SERUM 0.76 MG/DL (0.60-1.30); GFR ESTIMATED > 60; GLUCOSE 84 MG/DL (70-105); POTASSIUM 3.4 MMOL/L (3.6-5.0); SODIUM 141 MMOL/L (135-145)
[2017-10-14] MEDS: RT-ALBUTEROL/IPRATROPIUM 3 ML (DUONEB) VIAL INH SCH (07:35)
[2017-10-14] MEDS ORDERED: KCL 10 MEQ TAB (MICRO K) PO NR (07:45)
--- NOTE | 2017-10-14 07:50 | Progress Note (SOAP) ---
Subjective Time Seen by Provider: 07:45 Subjective/Events-last exam Patient states she's feeling better. Patient looks better. Pneumonia. UTI. Dementia. White blood cell count 10.7 better. Potassium 3.4 replace some potassium Objective Exam Vital Signs Date Time Temp Pulse Resp B/P (MAP) Pulse Ox O2 Delivery O2 Flow Rate FiO2 10/14/17 07:35 91 Room Air 10/14/17 00:22 98.0 74 16 128/62 (84) 94 Room Air 10/13/17 20:44 100.0 84 18 123/59 (80) 91 Room Air 10/13/17 20:06 Room Air 10/13/17 19:56 91 Room Air 10/13/17 16:29 76 91 21 10/13/17 15:54 Room Air 10/13/17 15:48 99.3 73 18 127/56 (79) 93 Room Air 10/13/17 13:35 79 18 142/84 93 Room Air 10/13/17 13:30 99.8 73 14 115/73 (87) 95 Room Air 10/13/17 12:47 98.0 77 16 126/79 93 Room Air 10/13/17 11:29 98.4 79 20 117/76 (90) 92 Room Air I & O 10/14/17 07:00 Intake Total 2250 ml Balance 2250 ml Capillary Refill : Less Than 3 SecondsLess Than 3 Seconds General Appearance: No Apparent Distress, Thin HEENT: Normal ENT Inspection Neck: Normal Inspection Respiratory: Lungs Clear, No Accessory Muscle Use, No Respiratory Distress Cardiovascular: No Murmur Gastrointestinal: non tender, soft Results Lab Laboratory Tests 10/13/17 11:24 10/14/17 05:42 Laboratory Tests 10/13/17 11:16: Lactic Acid Level 1.95 10/13/17 11:24: White Blood Count 17.5H, Red Blood Count 3.58L, Hemoglobin 13.9, Hematocrit 38, Mean Corpuscular Volume 107H, Mean Corpuscular Hemoglobin 39H, Mean Corpuscular Hemoglobin Concent 36, Red Cell Distribution Width 12.8, Platelet Count 220, Mean Platelet Volume 10.9H, Neutrophils (%) (Auto) 88H, Lymphocytes (%) (Auto) 5L, Monocytes (%) (Auto) 6, Eosinophils (%) (Auto) 1, Basophils (%) (Auto) 0, Neutrophils # (Auto) 15.4H, Lymphocytes # (Auto) 0.9L, Monocytes # (Auto) 1.0, Eosinophils # (Auto) 0.1, Basophils # (Auto) 0.1, Neutrophils % (Manual) 89, Lymphocytes % (Manual) 8, Monocytes % (Manual) 2, Eosinophils % (Manual) 0, Basophils % (Manual) 0, Band Neutrophils 1, Macrocytosis SLIGHT, Urine Color YELLOW, Urine Clarity CLEAR, Urine pH 6, Urine Specific [place] 1.020, Urine Protein 2+H, Urine Glucose (UA) NEGATIVE, Urine Ketones NEGATIVE, Urine Nitrite NEGATIVE, Urine Bilirubin NEGATIVE, Urine Urobilinogen NORMAL, Urine Leukocyte Esterase 3+H, Urine RBC (Auto) 2+H, Urine RBC RARE, Urine WBC 50-100H, Urine Squamous Epithelial Cells 2-5, Urine Crystals NONE, Urine Bacteria MODERATEH, Urine Casts NONE, Urine Mucus NEGATIVE, Urine Culture Indicated YES, Sodium Level 138, Potassium Level 3.9, Chloride Level 107, Carbon Dioxide Level 24, Anion Gap 7, Blood Urea Nitrogen 17, Creatinine 1.01, Estimat Glomerular Filtration Rate 52, BUN/Creatinine Ratio 17, Glucose Level 95, Calcium Level 8.7 , Total Bilirubin 0.6, Aspartate Amino Transf (AST/SGOT) 14, Alanine Aminotransferase (ALT/SGPT) 7, Alkaline Phosphatase 100, Total Protein 5.6L, Albumin 3.3 10/14/17 05:42: White Blood Count 10.7, Red Blood Count 3.29L, Hemoglobin 12.3, Hematocrit 36, Mean Corpuscular Volume 109H, Mean Corpuscular Hemoglobin 37H, Mean Corpuscular Hemoglobin Concent 34, Red Cell Distribution Width 12.5, Platelet Count 173, Mean Platelet Volume 10.9H, Neutrophils (%) (Auto) 80H, Lymphocytes (%) (Auto) 9L, Monocytes (%) (Auto) 9, Eosinophils (%) (Auto) 1, Basophils (%) (Auto) 0, Neutrophils # (Auto) 8.5H, Lymphocytes # (Auto) 1.0, Monocytes # (Auto) 0.9, Eosinophils # (Auto) 0.2, Basophils # (Auto) 0.0, Sodium Level 141, Potassium Level 3.4L, Chloride Level 109H, Carbon Dioxide Level 20L, Anion Gap 12, Blood Urea Nitrogen 13, Creatinine 0.76, Estimat Glomerular Filtration Rate > 60, BUN/ Creatinine Ratio 17, Glucose Level 84, Calcium Level 8.1L Assessment/Plan Assessment/Plan Assess & Plan/Chief Complaint Pneumonia. UTI. C. difficile. Dementia. CVA history. Leukocytosis resolved Clinical Quality Measures Admission Status Admission Dx Pneumonia. UTI. Febrile. Dementia. CVA. Hypertension history. Hyperlipidemia. Patient unable to give history since has no to everything. 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
[2017-10-14 08:00] VITALS: BP 131/66
[2017-10-14] MEDS: DOCUSATE SODIUM 100 MG (COLACE) CAP PO SCH ×2 (08:25→20:48)
[2017-10-14] MEDS: amLODIPine 10 MG (NORVASC) TAB PO SCH (08:48)
[2017-10-14] MEDS: MEMANTINE 10 MG (NAMENDA) TABLET PO SCH ×2 (08:48→21:31)
[2017-10-14] MEDS: meTOproloL SUCCINATE 50 MG (TOPROL XL) TAB PO SCH (08:48)
[2017-10-14] MEDS: ASPIRIN E.C. 81 MG (ECOTRIN) TAB PO SCH (08:48)
[2017-10-14] MEDS: metroNIDAZOLE 500 MG (FLAGYL) TAB PO SCH ×3 (08:48→21:31)
[2017-10-14] MEDS: LOSARTAN 50 MG (COZAAR) TAB PO SCH (08:48)
[2017-10-14] MEDS: LACTOBACILLUS Acidoph/Bulgar (LACTINEX/FLORANEX) TAB PO SCH ×2 (08:48→21:31)
[2017-10-14 12:00] VITALS: BP 128/61
[2017-10-14 16:00] VITALS: BP 133/63
[2017-10-14 20:00] VITALS: BP 127/65
[2017-10-14] MEDS: DONEPEZIL 10 MG (ARICEPT) TAB PO SCH (21:31)
[2017-10-14] MEDS: GABAPENTIN 300 MG (NEURONTIN) CAP PO SCH (21:31)
[2017-10-14] MEDS: ENOXAPARIN 40 MG/0.4 ML (LOVENOX) SYR SC SCH (21:31)
[2017-10-15] VITALS: BP 127/83
[2017-10-15] MEDS: LACTATED RINGERS 1,000 ML IV SCH (03:39)
[2017-10-15 04:00] VITALS: BP 140/65
[2017-10-15] MEDS: LEVOTHYROXINE 25 MCG (LEVOTHROID) TAB PO SCH (05:53)
[2017-10-15 05:58] LABS: BASOPHILS % (AUTO) 1 % (0-10); EOSINOPHILS # (AUTO) 0.1 10^3/uL (0.0-0.3); EOSINOPHILS % (AUTO) 2 % (0-10); HEMATOCRIT 39 % (35-52); HEMOGLOBIN 13.7 G/DL (11.5-16.0); LYMPHOCYTES # (AUTO) 0.9 X 10^3 (1.0-4.0); LYMPHOCYTES % (AUTO) 14 % (12-44); MEAN CORPUSCULAR HEMOGLOBIN 37 PG (25-34); MEAN CORPUSCULAR HGB CONC 35 G/DL (32-36); MEAN CORPUSCULAR VOLUME 106 FL (80-99); MEAN PLATELET VOLUME 10.6 FL (7.4-10.4); MONOCYTES # (AUTO) 0.6 X 10^3 (0.0-1.0); MONOCYTES % (AUTO) 9 % (0-12); NEUTROPHILS # (AUTO) 4.9 X 10^3 (1.8-7.8); NEUTROPHILS % (AUTO) 75 % (42-75); PLATELET COUNT 184 10^3/uL (130-400); RED BLOOD COUNT 3.68 10^6/uL (4.35-5.85); WHITE BLOOD COUNT 6.5 10^3/uL (4.3-11.0)
[2017-10-15 06:44] LABS: BUN/CREATININE RATIO 10; CALCIUM 8.5 MG/DL (8.5-10.1); CARBON DIOXIDE 23 MMOL/L (21-32); CHLORIDE 107 MMOL/L (98-107); CREATININE SERUM 0.68 MG/DL (0.60-1.30); GFR ESTIMATED > 60; GLUCOSE 84 MG/DL (70-105); POTASSIUM 3.2 MMOL/L (3.6-5.0); SODIUM 141 MMOL/L (135-145)
--- NOTE | 2017-10-15 07:20 | Diagnostic Imaging Report ---
INDICATION: Pneumonia. Portable upright AP view of chest is obtained. Since 10/13/2017, overall heart size and pulmonary vascularity remain within normal limits. There is no pneumothorax. Left basilar infiltrate is not significantly changed. There is no definite pleural fluid. IMPRESSION: Stable appearance of left basilar infiltrate without new abnormality identified. Dictated by: Dictated on workstation # [id number]
--- NOTE | 2017-10-15 07:54 | Progress Note (SOAP) ---
Subjective Time Seen by Provider: 07:50 Subjective/Events-last exam Pneumonia. UTI. Ration looks better today. Chest x-ray stable. Lost IV. White blood cell count better. Plan to discharge tomorrow. Objective Exam Vital Signs Date Time Temp Pulse Resp B/P (MAP) Pulse Ox O2 Delivery O2 Flow Rate FiO2 10/15/17 04:00 97.4 58 17 140/65 (90) 95 Room Air 10/15/17 00:00 97.2 59 17 127/83 (98) 96 Room Air 10/14/17 21:00 Room Air 10/14/17 20:00 98.6 66 16 127/65 (85) 95 Room Air 10/14/17 16:00 97.3 58 16 133/63 (86) 90 Room Air 10/14/17 12:00 98.2 74 18 128/61 (83) 94 Room Air 10/14/17 08:12 95 Room Air 10/14/17 08:00 98.1 71 16 131/66 (87) 93 Room Air I & O 10/15/17 07:00 Intake Total 630 ml Balance 630 ml Capillary Refill : Less Than 3 SecondsLess Than 3 Seconds General Appearance: No Apparent Distress, Thin HEENT: Normal ENT Inspection Neck: Normal Inspection Respiratory: Lungs Clear, Normal Breath Sounds, No Accessory Muscle Use, No Respiratory Distress Cardiovascular: Regular Rate, Rhythm, No Murmur Results Lab Laboratory Tests 10/15/17 05:37 Laboratory Tests 10/15/17 05:37: White Blood Count 6.5, Red Blood Count 3.68L, Hemoglobin 13.7, Hematocrit 39, Mean Corpuscular Volume 106H, Mean Corpuscular Hemoglobin 37H, Mean Corpuscular Hemoglobin Concent 35, Red Cell Distribution Width 12.0, Platelet Count 184, Mean Platelet Volume 10.6H, Neutrophils (%) (Auto) 75, Lymphocytes (%) (Auto) 14 , Monocytes (%) (Auto) 9, Eosinophils (%) (Auto) 2, Basophils (%) (Auto) 1, Neutrophils # (Auto) 4.9, Lymphocytes # (Auto) 0.9L, Monocytes # (Auto) 0.6, Eosinophils # (Auto) 0.1, Basophils # (Auto) 0.0, Sodium Level 141, Potassium Level 3.2L, Chloride Level 107, Carbon Dioxide Level 23, Anion Gap 11, Blood Urea Nitrogen 7, Creatinine 0.68, Estimat Glomerular Filtration Rate > 60, BUN/ Creatinine Ratio 10, Glucose Level 84, Calcium Level 8.5 Microbiology 10/13/17 Blood Culture - Preliminary, Resulted No growth 10/13/17 Urine Culture - Preliminary, Resulted Yeast species Lactobacillus species Assessment/Plan Assessment/Plan Assess & Plan/Chief Complaint Pneumonia. UTI. C. difficile. Dementia. CVA history. Leukocytosis resolved. . 10/15/17. Pneumonia. UTI. C. difficile. Dementia. CVA history. Chest x-ray stable. White blood cell count better. Lost IV. 1 more day of antibiotics by mouth. Plan to discharge tomorrow. Physical therapy initiated Clinical Quality Measures Admission Status Admission Dx Pneumonia. UTI. Febrile. Dementia. CVA. Hypertension history. Hyperlipidemia. Patient unable to give history since has no to everything. 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
[2017-10-15 08:00] VITALS: BP 147/70
[2017-10-15] MEDS ORDERED: KCL 10 MEQ TAB (MICRO K) PO NR (08:30)
[2017-10-15] MEDS: RT-ALBUTEROL/IPRATROPIUM 3 ML (DUONEB) VIAL INH SCH ×2 (08:42→20:03)
[2017-10-15] MEDS: LOSARTAN 50 MG (COZAAR) TAB PO SCH (09:41)
[2017-10-15] MEDS: ASPIRIN E.C. 81 MG (ECOTRIN) TAB PO SCH (09:41)
[2017-10-15] MEDS: CEFDINIR 300 MG (OMNICEF) CAP PO SCH ×2 (09:41→20:51)
[2017-10-15] MEDS: meTOproloL SUCCINATE 50 MG (TOPROL XL) TAB PO SCH (09:41)
[2017-10-15] MEDS: LACTOBACILLUS Acidoph/Bulgar (LACTINEX/FLORANEX) TAB PO SCH ×2 (09:41→20:50)
[2017-10-15] MEDS: MEMANTINE 10 MG (NAMENDA) TABLET PO SCH ×2 (09:41→20:50)
[2017-10-15] MEDS: metroNIDAZOLE 500 MG (FLAGYL) TAB PO SCH ×3 (09:41→20:51)
[2017-10-15] MEDS: amLODIPine 10 MG (NORVASC) TAB PO SCH (09:41)
[2017-10-15] MEDS: DOCUSATE SODIUM 100 MG (COLACE) CAP PO SCH ×2 (09:42→19:42)
--- NOTE | 2017-10-15 12:35 | Physical Therapy Evaluation ---
PT Evaluation-General Medical Diagnosis Admission Date Oct 13, 2017 at 12:46 Medical Diagnosis: UTI,pneumonia, CDiff Onset Date: Oct 13, 2017 Therapy Diagnosis Therapy Diagnosis: generalized weakness/debility Height/Weight Height (Feet): 5 Height (Inches): 2.00 Weight (Pounds): 154 Weight (Ounces): 0.0 Precautions Precautions/Isolations: Contact Isolation, Fall Prevention, Pressure Ulcer Weight Bear Status Right Lower Extremity: Right Full Weight Bearing Left Lower Extremity: Left Full Weight Bearing Referral Physician: Tayla Medical History Pertinent Medical History: CVA (left silverio), Dementia, HTN Current History EMS from [place] with fever and weakness Reviewed History: Yes Social History Home: Correction Prior/Core FIM Prior Level of Function Functional H[place] Measure 0=Not Assessed/NA 4=Minimal Assistance 1=Total Assistance 5=Supervision or Setup 2=Maximal Assistance 6=Modified H[place] 3=Moderate Assistance 7=Complete H[place] Bed Mobility: 2 Transfers (B,C,W/C) (FIM): 2 PT Evaluation-Current Subjective Patient is in bed, confused and incontinent urine (requiring dependent assist to cleanse and change) Pain Numeric Pain Scale: 0-No Pain Location: No Pain Reported Objective Patient Orientation: Confused Problem Solving: Poor ROM/Strength ROM Lower Extremities bilateral LE WNL Strength Lower Extremities right LE 3-/5 grossly left LE 2/5 grossly (unable to formally test due to dementia) Integumentary/Posture Integumentary refer to nursing notes Bladder Incontinence: Yes Posture kyphotic/cervical flexion Neuromuscular (Tone, Coordination, Reflexes) severely diminished coordination and tone Sensory Vision: Functional Hearing: Impaired Sensation Right Lower Extremit: Intact Sensation Left Lower Extremity: Intact Transfers Functional [place] Measure 0=Not Assessed/NA 4=Minimal Assistance 1=Total Assistance 5=Supervision or Setup 2=Maximal Assistance 6=Modified H[place] 3=Moderate Assistance 7=Complete [place] Transfers (B, C, W/C) (FIM): 2 Scootin Rollin Supine to/from Sit: 2 Sit to/from Stand: 2 bed t/f WC(FIM only if WC use): 2 max assist with all mobility and SPT Gait Anticipated Mode of Locomotion: Wheelchair Balance Sitting Static: Fair Sitting Dynamic: Poor Standing Static: Poor Standing Dynamic: Poor Assessment/Needs 87 y.o. female, will be seen short term by skilled PT to address functional mobility and strength. Patient is limited due to dementia and weakness. PT contacted NH on patient's PLOF. Rehab Potential: Guarded PT Longterm Goals Longterm Goals PT Longterm Goals Time Frame: Oct 24, 2017 Transfers (B,C,W/C) (FIM): 3 PT Plan Problem List Problem List: Activity Tolerance, Functional Strength, Safety, Balance, Gait, Transfer, Bed Mobility Treatment/Plan Treatment Plan: Continue Plan of Care Treatment Plan: Bed Mobility, Education, Functional Activity Tessy, Functional Strength, Gait, Safety, Therapeutic Exercise, Transfers Treatment Duration: Oct 24, 2017 Frequency: 5 times per week Estimated Hrs Per Day: .25 hour per day Patient and/or Family Agrees t: Yes Discharge Recommendations Therapy D/C Recommendations: Correction Placement, Fpc (TCU/NH) Time/GCodes Time In: 1130 Time Out: 1155 Total Billed Treatment Time: 25 Total Billed Treatment 1 visit EVModC 25 min G Codes Necessary: SOTO Camejo PT Oct 15, 2017 12:35
[2017-10-15 16:00] VITALS: BP 129/68
[2017-10-15] MEDS: ENOXAPARIN 40 MG/0.4 ML (LOVENOX) SYR SC SCH (19:06)
[2017-10-15] MEDS: GABAPENTIN 300 MG (NEURONTIN) CAP PO SCH (20:51)
[2017-10-15] MEDS: DONEPEZIL 10 MG (ARICEPT) TAB PO SCH (20:51)
[2017-10-16] VITALS: BP 132/71
[2017-10-16] MEDS: LEVOTHYROXINE 25 MCG (LEVOTHROID) TAB PO SCH (06:28)
[2017-10-16 06:40] LABS: BASOPHILS # (AUTO) 0.1 10^3/uL (0.0-0.1); BASOPHILS % (AUTO) 1 % (0-10); EOSINOPHILS # (AUTO) 0.1 10^3/uL (0.0-0.3); EOSINOPHILS % (AUTO) 2 % (0-10); HEMATOCRIT 37 % (35-52); HEMOGLOBIN 12.8 G/DL (11.5-16.0); LYMPHOCYTES % (AUTO) 16 % (12-44); MEAN CORPUSCULAR HEMOGLOBIN 37 PG (25-34); MEAN CORPUSCULAR HGB CONC 35 G/DL (32-36); MEAN CORPUSCULAR VOLUME 106 FL (80-99); MEAN PLATELET VOLUME 10.4 FL (7.4-10.4); MONOCYTES # (AUTO) 0.7 X 10^3 (0.0-1.0); MONOCYTES % (AUTO) 12 % (0-12); NEUTROPHILS # (AUTO) 4.1 X 10^3 (1.8-7.8); NEUTROPHILS % (AUTO) 69 % (42-75); PLATELET COUNT 206 10^3/uL (130-400); RED BLOOD COUNT 3.45 10^6/uL (4.35-5.85); RED CELL DISTRIBUTION WIDTH 11.8 % (10.0-14.5)
[2017-10-16 06:59] LABS: BUN/CREATININE RATIO 12; CALCIUM 8.2 MG/DL (8.5-10.1); CARBON DIOXIDE 21 MMOL/L (21-32); CHLORIDE 108 MMOL/L (98-107); GFR ESTIMATED > 60; GLUCOSE 82 MG/DL (70-105); POTASSIUM 3.2 MMOL/L (3.6-5.0); SODIUM 139 MMOL/L (135-145)
--- NOTE | 2017-10-16 07:49 | Progress Note (SOAP) ---
Subjective Time Seen by Provider: 07:45 Subjective/Events-last exam Patient doing better today. Patient still confused but talking more rational. Potassium 3.2. Blood tests look good. To discharge today back to [facility] Objective Exam Vital Signs Date Time Temp Pulse Resp B/P (MAP) Pulse Ox O2 Delivery O2 Flow Rate FiO2 10/16/17 00:00 98.4 65 16 132/71 (91) 96 Room Air 10/15/17 21:00 Room Air 10/15/17 20:06 94 Room Air 10/15/17 16:00 97.6 60 16 129/68 (88) 95 Room Air 10/15/17 09:00 95 Room Air 10/15/17 08:42 92 Room Air 10/15/17 08:00 98.2 69 20 147/70 (95) 94 Room Air I & O 10/16/17 07:00 Intake Total 650 ml Balance 650 ml Capillary Refill : Less Than 3 SecondsLess Than 3 Seconds General Appearance: No Apparent Distress, Thin Results Lab Laboratory Tests 10/16/17 06:15: White Blood Count 6.0, Red Blood Count 3.45L, Hemoglobin 12.8, Hematocrit 37, Mean Corpuscular Volume 106H, Mean Corpuscular Hemoglobin 37H, Mean Corpuscular Hemoglobin Concent 35, Red Cell Distribution Width 11.8, Platelet Count 206, Mean Platelet Volume 10.4, Neutrophils (%) (Auto) 69, Lymphocytes (%) (Auto) 16 , Monocytes (%) (Auto) 12, Eosinophils (%) (Auto) 2, Basophils (%) (Auto) 1, Neutrophils # (Auto) 4.1, Lymphocytes # (Auto) 1.0, Monocytes # (Auto) 0.7, Eosinophils # (Auto) 0.1, Basophils # (Auto) 0.1, Sodium Level 139, Potassium Level 3.2L, Chloride Level 108H, Carbon Dioxide Level 21, Anion Gap 10, Blood Urea Nitrogen 7, Creatinine 0.60, Estimat Glomerular Filtration Rate > 60, BUN/ Creatinine Ratio 12, Glucose Level 82, Calcium Level 8.2L Microbiology 10/13/17 Blood Culture - Preliminary, Resulted No growth 10/13/17 Urine Culture - Final, Complete Yeast species Lactobacillus species Assessment/Plan Assessment/Plan Assess & Plan/Chief Complaint Pneumonia. UTI. C. difficile. Dementia. CVA history. Leukocytosis resolved. . 3/7/18. Pneumonia. UTI. C. difficile. Dementia. CVA history. Chest x-ray stable. White blood cell count better. Lost IV. 1 more day of antibiotics by mouth. Plan to discharge tomorrow. Physical therapy initiated. . 10/16/17. Pneumonia. UTI. C. difficile. Dementia. CVA history. Patient stable today and more alert. Plan to discharge today Clinical Quality Measures Admission Status Admission Dx Pneumonia. UTI. Febrile. Dementia. CVA. Hypertension history. Hyperlipidemia. Patient unable to give history since has no to everything. 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
--- NOTE | 2017-10-16 07:51 | Discharge Inst-Skilled Nursing ---
Discharge Inst-Skilled NF Consult/Follow Up/Orders Skilled NF Admit to: [facility] Certification (SNF) I certify that SNF services are required to be given on an inpatient basis because of the above named patient's need for half-way care on a continuing basis for the conditions(s) for which he/she was receiving inpatient hospital services prior to his/her transfer to the SNF. Discharge Diet: Regular Diet New & Resume Previous Orders Benjamin Rojas Oct 16, 2017 07:50 BENJAMIN ROJAS DO Oct 16, 2017 07:51
[2017-10-16 08:00] VITALS: BP 169/78
[2017-10-16] MEDS ORDERED: KCL 10 MEQ TAB (MICRO K) PO NR (08:00)
[2017-10-16 08:33] VITALS: BP 132/71
[2017-10-16] MEDS: CEFDINIR 300 MG (OMNICEF) CAP PO SCH (08:59)
[2017-10-16] MEDS: MEMANTINE 10 MG (NAMENDA) TABLET PO SCH (08:59)
[2017-10-16] MEDS: meTOproloL SUCCINATE 50 MG (TOPROL XL) TAB PO SCH (08:59)
[2017-10-16] MEDS: LOSARTAN 50 MG (COZAAR) TAB PO SCH (08:59)
[2017-10-16] MEDS: DOCUSATE SODIUM 100 MG (COLACE) CAP PO SCH (08:59)
[2017-10-16] MEDS: ASPIRIN E.C. 81 MG (ECOTRIN) TAB PO SCH (08:59)
[2017-10-16] MEDS: LACTOBACILLUS Acidoph/Bulgar (LACTINEX/FLORANEX) TAB PO SCH (08:59)
[2017-10-16] MEDS: amLODIPine 10 MG (NORVASC) TAB PO SCH (08:59)
[2017-10-16] MEDS: metroNIDAZOLE 500 MG (FLAGYL) TAB PO SCH ×2 (08:59→13:27)
[2017-10-16] MEDS ORDERED: CEFD300C3 PO (12:07)
--- NOTE | 2017-10-16 19:12 | Discharge Summary ---
Diagnosis/Chief Complaint Date of Admission Oct 13, 2017 at 12:46 Date of Discharge Oct 16, 2017 at 15:25 Discharge Date: Oct 16, 2017 Discharge Time: 19:05 Discharge Diagnosis Pneumonia. UTI. Leukocytosis. Hypokalemia. Dementia. C. difficile. Confusion. Hypothyroid. DO NOT RESUSCITATE. CVA. hemiPlegia Reason Hospital Visit Patient is a resident of a [place] [facility]. According to the nurse patient's running an elevated temperature and lethargic and acting differently. Patient sent out to the emergency room showing a UTI and pneumonia. Patient admitted. Patient has a history of dementia. Patient also has a CVA history Discharge Summary Discharge Physical Examination Allergies: Coded Allergies: No Known Drug Allergies (Verified , 10/13/17) Vitals & I&Os Vital Signs Date Time Temp Pulse Resp B/P (MAP) Pulse Ox O2 Delivery O2 Flow Rate FiO2 10/16/17 09:00 Room Air 10/16/17 08:33 65 96 10/16/17 08:00 98.8 20 169/78 (108) 10/13/17 16:29 21 Hospital Course Patient improved. Patient sent back to [facility] Labs (last 24 hrs) Laboratory Tests 10/13/17 11:16: Lactic Acid Level 1.95 10/13/17 11:24: White Blood Count 17.5H, Red Blood Count 3.58L, Hemoglobin 13.9, Hematocrit 38, Mean Corpuscular Volume 107H, Mean Corpuscular Hemoglobin 39H, Mean Corpuscular Hemoglobin Concent 36, Red Cell Distribution Width 12.8, Platelet Count 220, Mean Platelet Volume 10.9H, Neutrophils (%) (Auto) 88H, Lymphocytes (%) (Auto) 5L, Monocytes (%) (Auto) 6, Eosinophils (%) (Auto) 1, Basophils (%) (Auto) 0, Neutrophils # (Auto) 15.4H, Lymphocytes # (Auto) 0.9L, Monocytes # (Auto) 1.0, Eosinophils # (Auto) 0.1, Basophils # (Auto) 0.1, Neutrophils % (Manual) 89, Lymphocytes % (Manual) 8, Monocytes % (Manual) 2, Eosinophils % (Manual) 0, Basophils % (Manual) 0, Band Neutrophils 1, Macrocytosis SLIGHT, Urine Color YELLOW, Urine Clarity CLEAR, Urine pH 6, Urine Specific [place] 1.020, Urine Protein 2+H, Urine Glucose (UA) NEGATIVE, Urine Ketones NEGATIVE, Urine Nitrite NEGATIVE, Urine Bilirubin NEGATIVE, Urine Urobilinogen NORMAL, Urine Leukocyte Esterase 3+H, Urine RBC (Auto) 2+H, Urine RBC RARE, Urine WBC 50-100H, Urine Squamous Epithelial Cells 2-5, Urine Crystals NONE, Urine Bacteria MODERATEH, Urine Casts NONE, Urine Mucus NEGATIVE, Urine Culture Indicated YES, Sodium Level 138, Potassium Level 3.9, Chloride Level 107, Carbon Dioxide Level 24, Anion Gap 7, Blood Urea Nitrogen 17, Creatinine 1.01, Estimat Glomerular Filtration Rate 52, BUN/Creatinine Ratio 17, Glucose Level 95, Calcium Level 8.7 , Total Bilirubin 0.6, Aspartate Amino Transf (AST/SGOT) 14, Alanine Aminotransferase (ALT/SGPT) 7, Alkaline Phosphatase 100, Total Protein 5.6L, Albumin 3.3 10/14/17 05:42: White Blood Count 10.7, Red Blood Count 3.29L, Hemoglobin 12.3, Hematocrit 36, Mean Corpuscular Volume 109H, Mean Corpuscular Hemoglobin 37H, Mean Corpuscular Hemoglobin Concent 34, Red Cell Distribution Width 12.5, Platelet Count 173, Mean Platelet Volume 10.9H, Neutrophils (%) (Auto) 80H, Lymphocytes (%) (Auto) 9L, Monocytes (%) (Auto) 9, Eosinophils (%) (Auto) 1, Basophils (%) (Auto) 0, Neutrophils # (Auto) 8.5H, Lymphocytes # (Auto) 1.0, Monocytes # (Auto) 0.9, Eosinophils # (Auto) 0.2, Basophils # (Auto) 0.0, Sodium Level 141, Potassium Level 3.4L, Chloride Level 109H, Carbon Dioxide Level 20L, Anion Gap 12, Blood Urea Nitrogen 13, Creatinine 0.76, Estimat Glomerular Filtration Rate > 60, BUN/ Creatinine Ratio 17, Glucose Level 84, Calcium Level 8.1L 10/15/17 05:37: White Blood Count 6.5, Red Blood Count 3.68L, Hemoglobin 13.7, Hematocrit 39, Mean Corpuscular Volume 106H, Mean Corpuscular Hemoglobin 37H, Mean Corpuscular Hemoglobin Concent 35, Red Cell Distribution Width 12.0, Platelet Count 184, Mean Platelet Volume 10.6H, Neutrophils (%) (Auto) 75, Lymphocytes (%) (Auto) 14 , Monocytes (%) (Auto) 9, Eosinophils (%) (Auto) 2, Basophils (%) (Auto) 1, Neutrophils # (Auto) 4.9, Lymphocytes # (Auto) 0.9L, Monocytes # (Auto) 0.6, Eosinophils # (Auto) 0.1, Basophils # (Auto) 0.0, Sodium Level 141, Potassium Level 3.2L, Chloride Level 107, Carbon Dioxide Level 23, Anion Gap 11, Blood Urea Nitrogen 7, Creatinine 0.68, Estimat Glomerular Filtration Rate > 60, BUN/ Creatinine Ratio 10, Glucose Level 84, Calcium Level 8.5 10/16/17 06:15: White Blood Count 6.0, Red Blood Count 3.45L, Hemoglobin 12.8, Hematocrit 37, Mean Corpuscular Volume 106H, Mean Corpuscular Hemoglobin 37H, Mean Corpuscular Hemoglobin Concent 35, Red Cell Distribution Width 11.8, Platelet Count 206, Mean Platelet Volume 10.4, Neutrophils (%) (Auto) 69, Lymphocytes (%) (Auto) 16 , Monocytes (%) (Auto) 12, Eosinophils (%) (Auto) 2, Basophils (%) (Auto) 1, Neutrophils # (Auto) 4.1, Lymphocytes # (Auto) 1.0, Monocytes # (Auto) 0.7, Eosinophils # (Auto) 0.1, Basophils # (Auto) 0.1, Sodium Level 139, Potassium Level 3.2L, Chloride Level 108H, Carbon Dioxide Level 21, Anion Gap 10, Blood Urea Nitrogen 7, Creatinine 0.60, Estimat Glomerular Filtration Rate > 60, BUN/ Creatinine Ratio 12, Glucose Level 82, Calcium Level 8.2L Microbiology 10/13/17 Blood Culture - Preliminary, Resulted No growth 10/13/17 Urine Culture - Final, Complete Yeast species Lactobacillus species Laboratory Tests 10/13/17 11:24 10/14/17 05:42 10/15/17 05:37 10/16/17 06:15 Pending Labs Microbiology Date/Time Source Procedure Growth Status 10/13/17 12:40 Peripheral Lt Ac Blood Culture - Preliminary No growth Resulted 10/13/17 11:16 Peripheral Right Wrist Blood Culture - Preliminary No growth Resulted 10/13/17 11:24 Urine Straight Cath, In/Out Urine Culture - Final Yeast species Lactobacillus species Complete Laboratory Tests 10/13/17 11:16: Lactic Acid Level 1.95 10/13/17 11:24: White Blood Count 17.5, Red Blood Count 3.58, Hemoglobin 13.9, Hematocrit 38, Mean Corpuscular Volume 107, Mean Corpuscular Hemoglobin 39, Mean Corpuscular Hemoglobin Concent 36, Red Cell Distribution Width 12.8, Platelet Count 220, Mean Platelet Volume 10.9, Neutrophils (%) (Auto) 88, Lymphocytes (%) (Auto) 5, Monocytes (%) (Auto) 6, Eosinophils (%) (Auto) 1, Basophils (%) (Auto) 0, Neutrophils # (Auto) 15.4, Lymphocytes # (Auto) 0.9, Monocytes # (Auto) 1.0, Eosinophils # (Auto) 0.1, Basophils # (Auto) 0.1, Neutrophils % (Manual) 89, Lymphocytes % (Manual) 8, Monocytes % (Manual) 2, Eosinophils % (Manual) 0, Basophils % (Manual) 0, Band Neutrophils 1, Macrocytosis SLIGHT, Urine Color YELLOW, Urine Clarity CLEAR, Urine pH 6, Urine Specific [place] 1.020, Urine Protein 2+, Urine Glucose (UA) NEGATIVE, Urine Ketones NEGATIVE, Urine Nitrite NEGATIVE, Urine Bilirubin NEGATIVE, Urine Urobilinogen NORMAL, Urine Leukocyte Esterase 3+, Urine RBC (Auto) 2+, Urine RBC RARE, Urine WBC 50-100, Urine Squamous Epithelial Cells 2-5, Urine Crystals NONE, Urine Bacteria MODERATE, Urine Casts NONE, Urine Mucus NEGATIVE, Urine Culture Indicated YES, Sodium Level 138, Potassium Level 3.9, Chloride Level 107, Carbon Dioxide Level 24, Anion Gap 7, Blood Urea Nitrogen 17, Creatinine 1.01, Estimat Glomerular Filtration Rate 52, BUN/Creatinine Ratio 17, Glucose Level 95, Calcium Level 8.7 , Total Bilirubin 0.6, Aspartate Amino Transf (AST/SGOT) 14, Alanine Aminotransferase (ALT/SGPT) 7, Alkaline Phosphatase 100, Total Protein 5.6, Albumin 3.3 10/14/17 05:42: White Blood Count 10.7, Red Blood Count 3.29, Hemoglobin 12.3, Hematocrit 36, Mean Corpuscular Volume 109, Mean Corpuscular Hemoglobin 37, Mean Corpuscular Hemoglobin Concent 34, Red Cell Distribution Width 12.5, Platelet Count 173, Mean Platelet Volume 10.9, Neutrophils (%) (Auto) 80, Lymphocytes (%) (Auto) 9, Monocytes (%) (Auto) 9, Eosinophils (%) (Auto) 1, Basophils (%) (Auto) 0, Neutrophils # (Auto) 8.5, Lymphocytes # (Auto) 1.0, Monocytes # (Auto) 0.9, Eosinophils # (Auto) 0.2, Basophils # (Auto) 0.0, Sodium Level 141, Potassium Level 3.4, Chloride Level 109, Carbon Dioxide Level 20, Anion Gap 12, Blood Urea Nitrogen 13, Creatinine 0.76, Estimat Glomerular Filtration Rate > 60, BUN/ Creatinine Ratio 17, Glucose Level 84, Calcium Level 8.1 10/15/17 05:37: White Blood Count 6.5, Red Blood Count 3.68, Hemoglobin 13.7, Hematocrit 39, Mean Corpuscular Volume 106, Mean Corpuscular Hemoglobin 37, Mean Corpuscular Hemoglobin Concent 35, Red Cell Distribution Width 12.0, Platelet Count 184, Mean Platelet Volume 10.6, Neutrophils (%) (Auto) 75, Lymphocytes (%) (Auto) 14 , Monocytes (%) (Auto) 9, Eosinophils (%) (Auto) 2, Basophils (%) (Auto) 1, Neutrophils # (Auto) 4.9, Lymphocytes # (Auto) 0.9, Monocytes # (Auto) 0.6, Eosinophils # (Auto) 0.1, Basophils # (Auto) 0.0, Sodium Level 141, Potassium Level 3.2, Chloride Level 107, Carbon Dioxide Level 23, Anion Gap 11, Blood Urea Nitrogen 7, Creatinine 0.68, Estimat Glomerular Filtration Rate > 60, BUN/ Creatinine Ratio 10, Glucose Level 84, Calcium Level 8.5 10/16/17 06:15: White Blood Count 6.0, Red Blood Count 3.45, Hemoglobin 12.8, Hematocrit 37, Mean Corpuscular Volume 106, Mean Corpuscular Hemoglobin 37, Mean Corpuscular Hemoglobin Concent 35, Red Cell Distribution Width 11.8, Platelet Count 206, Mean Platelet Volume 10.4, Neutrophils (%) (Auto) 69, Lymphocytes (%) (Auto) 16 , Monocytes (%) (Auto) 12, Eosinophils (%) (Auto) 2, Basophils (%) (Auto) 1, Neutrophils # (Auto) 4.1, Lymphocytes # (Auto) 1.0, Monocytes # (Auto) 0.7, Eosinophils # (Auto) 0.1, Basophils # (Auto) 0.1, Sodium Level 139, Potassium Level 3.2, Chloride Level 108, Carbon Dioxide Level 21, Anion Gap 10, Blood Urea Nitrogen 7, Creatinine 0.60, Estimat Glomerular Filtration Rate > 60, BUN/ Creatinine Ratio 12, Glucose Level 82, Calcium Level 8.2 Discharge Home Medications: Active Scripts Active Cefdinir 300 Mg Capsule 300 Mg PO BID 2 Days Reported Levothyroxine Sodium 25 Mcg Tablet 25 Mcg PO DAILY Imodium A-D (Loperamide HCl) 2 Mg Tablet 2 Mg PO QID PRN Guaifenesin 100 Mg/5 Ml Liquid 10 Ml PO Q4H PRN Memantine HCl 10 Mg Tablet 10 Mg PO BID Donepezil HCl 10 Mg Tablet 10 Mg PO HS Acetaminophen 325 Mg Tablet 650 Mg PO Q4H PRN Aspirin EC (Aspirin) 81 Mg Tablet.dr 81 Mg PO DAILY Docusate Sodium 100 Mg Capsule 100 Mg PO BID Gabapentin 300 Mg Capsule 300 Mg PO HS Amlodipine Besylate 10 Mg Tablet 10 Mg PO DAILY Metoprolol Succinate 50 Mg Tab.er.24h 50 Mg PO DAILY Losartan Potassium 50 Mg Tablet 50 Mg PO DAILY Tramadol HCl 50 Mg Tablet 50 Mg PO BID PRN Instructions to patient/family Please see electronic discharge instructions given to patient. Clinical Quality Measures DVT/VTE Risk/Contraindication: Risk Factor Score Per Nursin RFS Level Per Nursing on Admit: 4+=Very High DAHLIA ROJAS DO Oct 16, 2017 19:11
== END 2017-10-16 15:25 | DRG 689 ==
LOC: EDUNIT# 11:00 → ER 11:01 → 4TH 12:46
PROVIDERS: ADMIT Family Medicine; ATTEND Family Medicine
DX: N39.0 Urinary tract infection, site not specified (principal); J18.9 Pneumonia, unspecified organism; A04.72 Enterocolitis due to Clostridium difficile, not specified as recurrent; G81.94 Hemiplegia, unspecified affecting left nondominant side; I10 Essential (primary) hypertension; E78.00 Pure hypercholesterolemia, unspecified; F03.90 Unspecified dementia, unspecified severity, without behavioral disturbance, psychotic disturbance, mood disturbance, and anxiety; Z66 Do not resuscitate; K21.9 Gastro-esophageal reflux disease without esophagitis; K59.09 Other constipation; E03.9 Hypothyroidism, unspecified; M81.0 Age-related osteoporosis without current pathological fracture; M19.91 Primary osteoarthritis, unspecified site; Z86.19 Personal history of other infectious and parasitic diseases; Z87.891 Personal history of nicotine dependence; Z85.828 Personal history of other malignant neoplasm of skin
CPT/HCPCS: 36415; 51701; 71045; 80048; 80053; 81000; 83605; 85007; 85025; 85027; 87040; 87088; 94640; 94760; 96361; 96374